=== PATIENT | female | born 1970 | race Caucasian/White ===

== ENCOUNTER 2017-10-02 14:29 | Inpatient (IN) | payer OTHER ==
[~2017-10-02] VITALS: Ht 190.5 cm; Wt 123.4 kg
--- NOTE | ~2017-10-02 | O ---
[facility] [place] [address] OPERATIVE REPORT Name: NAIMA SANDY Room #: 206-P [facility] IN M.R.#: [id number] Admission: 10/02/17 Attend Phys: Krishna Mcmahan MD Discharge: 10/07/17 Date of : 72 Report #: [id number] THIS REPORT FOR: //name// CC: Krishna Mcmahan NO PCP DATE OF SERVICE: 10/04/2017 PREOPERATIVE DIAGNOSES: 1. Left dorsal hand wounds. 2. Left hip subcutaneous abscess with ulceration x 2. 3. Right hip subcutaneous abscess with ulceration x 2. POSTOPERATIVE DIAGNOSES: 1. Left dorsal hand wounds. 2. Left hip subcutaneous abscess with ulceration x 2. 3. Right hip subcutaneous abscess with ulceration x 2. PROCEDURE: 1. I and D left dorsal hand abscess with placement of wound VAC on a wound, size 4 x 4 cm. 2. I and D left hip subcutaneous abscess with ulceration x 2. 3. I and D right hip subcutaneous abscess with ulceration x 2. SURGEON: Amrik Lopez MD FIELD SERVICE REP: Niesha Cooper PA-C ANESTHESIA: LMA. ESTIMATED BLOOD LOSS: 25 mL. COMPLICATIONS: None. SPECIMENS: None. CONDITION UPON LEAVING THE OPERATING ROOM: Stable. INDICATIONS FOR PROCEDURE: The patient is a 46-year-old female who has had multiple skin abscesses on the dorsum of her left hand as well as bilateral hips and cellulitis and Wound Care felt that it would be best to surgically debride it. In addition, she has had 2 subcutaneous abscesses with ulceration on right and left hip that have been open and draining. We elected to proceed with [facility] [address] [place] [address] OPERATIVE REPORT Name: NAIMA SANDY Room #: 206-P [facility] IN M.R.#: [id number] Admission: 10/02/17 Attend Phys: Krishna Mcmahan MD Discharge: 10/07/17 Date of : 72 Report #: [id number] debridement of these while in the operating room at the same time. DESCRIPTION OF PROCEDURE: Risks, benefits, alternatives, complications were discussed in detail with the patient including but not limited to risk of anesthesia, risk of damage to nerves, arteries, blood vessels; risk for continued infection, bleeding, and need for reoperation. Informed consent was obtained from the patient. The left hand and bilateral hips were appropriately marked in the preoperative holding area. She was already on IV vancomycin for preoperative antibiotics. She was brought to the operating room and placed in the supine position on the operating room table and LMA anesthesia was induced without complication. The left hand and upper extremity were prepped and draped in normal sterile fashion. Bilateral hips were prepped and draped in normal sterile fashion. Timeout was performed properly identifying the patient and procedure as well as the instrumentation. All in the operating room were in agreement. The left hand was debrided first and edges of wound were debrided sharply with a 10 blade with some expression of additional pus. The wound was digitally explored dorsally and medially. Adhesions were broken up and this was thoroughly irrigated with pulse lavage. Necrotic tissue was debrided with a wound vac was applied 4 x 4 cm. Attention was then turned to bilateral hips. The wounds extended into the adipose layer, but not deeper than that. Adhesions and loculations were broken up and these were thoroughly irrigated using a pulse lavage. Wounds were then dressed with a wet to dry dressing using normal saline. Medipore tape was applied. After this, she was awoken from anesthesia and taken to the recovery room under the care of Anesthesia postoperatively. <ELECTRONICALLY SIGNED> By: Amrik Lopez MD 10/08/17 1448 [id number] 1737 Amrik Lopez MD /nt
--- NOTE | ~2017-10-02 | HC ---
[facility] [place] [address] CONSULTATION Name: NAIMA SANDY Room #: 206-P [facility] IN M.R.#: [id number] Admission: 10/02/17 Attend Phys: Krishna Mcmahan MD Discharge: 10/07/17 Date of : 72 Report #: [id number] THIS REPORT FOR: //name// CC: Krishna Mcmahan NO PCP DATE OF SERVICE: 10/04/2017 REASON FOR CONSULTATION: Left hand and bilateral hip abscesses. HISTORY OF PRESENT ILLNESS: The patient is a 46-year-old female has been admitted to the hospital secondary to an abscess on her left hand as well as her bilateral hips. It has been there for a few weeks and has presumptive MRSA. She has had increasing pain and cellulitis in her left hand. Wound care has been consulted as well as Infectious Disease and the feeling is that she needs surgical debridement for these. PAST MEDICAL AND SURGICAL HISTORY: Gastric bypass, cholecystectomy, pancreatitis, COPD, hysterectomy. CURRENT MEDICATIONS: Have been reviewed and are on the chart. ALLERGIES: No known drug allergies. SOCIAL HISTORY: She drinks a pint of alcohol a day. Smokes 2 packs of cigarettes a day. Denies illicit drug use, although according to the chart there is some history of possible marijuana use. She is and her has a history of MRSA abscesses. PHYSICAL EXAMINATION: GENERAL: This is a well-developed, well-nourished female. She is in a moderate amount of pain. She is, however, cooperative with exam. EXTREMITIES: Examination of the left hand shows to have a draining ulceration in the dorsum of the left hand in the area of the first web space. There is some purulent drainage from this. This is opened with granulation tissue and surrounding cellulitis. She has poor parts department supervisor strength, but does have good sensation and brisk capillary refill. Examination of bilateral hip shows her to have two draining ulcerations, one in her almost directly lateral to her greater trochanter as well as one more in the belt line. These are draining with minimal cellulitis. LABORATORY DATA: Lab values showed to have a white count of 5.6. ASSESSMENT: Left hand abscess and bilateral hip abscesses. PLAN: She is having significant pain and debility from her left hand abscess [facility] [address] [place] [address] CONSULTATION Name: NAIMA SANDY Room #: 206-P [facility] IN M.R.#: [id number] Admission: 10/02/17 Attend Phys: Krishna Mcmahan MD Discharge: 10/07/17 Date of : 72 Report #: [id number] and so we will plan to take her to the operating room for surgical debridement of this and possible placement of a wound VAC. I do want to talk with Wound Care regarding their feeling about debridement of the hip abscesses or not. There is mild drainage from both of these and seemed to be decompressed, although we may consider surgical debridement of these since we are already in surgery for her left hand. We will plan to do her surgery later this morning. Thank you for allowing us to participate in the care of this patient. <ELECTRONICALLY SIGNED> By: Amrik Lopez MD 10/08/17 1448 0852 1848 Amrik Lopez MD /nt
--- NOTE | ~2017-10-02 | HC ---
[facility] [place] [address] CONSULTATION Name: NAIMA SANDY Room #: 206-P [facility] IN M.R.#: [id number] Admission: 10/02/17 Attend Phys: Krishna Mcmahan MD Discharge: Date of : 72 Report #: [id number] THIS REPORT FOR: //name// CC: Krishna Mcmahan NO PCP DATE OF SERVICE: 10/03/2017 GENERAL SURGERY CONSULT REFERRING PROVIDER: Dominick Garcia MD REASON FOR CONSULT: Multiple abscesses with necrosis. HISTORY OF PRESENT ILLNESS: The patient is a 46-year-old female with a history of alcoholism, although she denies any history of tobacco or illicit drug use, who presented with a 3-4 day history of left hand cellulitis and a large abscess. The patient's abscess on her hand has since opened and is draining, although her hand remains markedly erythematous and swollen with decreased range of motion. In addition, the patient has presence of numerous abscesses to both hips and outer thighs as well and culture results have returned positive for Staph aureus with presumptive MRSA. The patient's wounds will likely need further drainage and/or debridement and I have been asked to evaluate. She does have a past history of alcohol withdrawal while hospitalized. She also does admit to smoking 2 packs of tobacco daily when further questioned. PAST MEDICAL HISTORY: Prior gastric bypass and cholecystectomy as well as pancreatitis, COPD and hysterectomy. HOME MEDICATIONS: No home medications. ALLERGIES: No known drug allergies. FAMILY HISTORY: Reviewed and noncontributory. SOCIAL HISTORY: The patient drinks a pint of alcohol daily, smokes 2 packs of cigarettes daily. Denies any illicit drug use; however. She is and her has MRSA abscesses as well. REVIEW OF SYSTEMS: GENERAL: The patient denies nocturnal fevers or chills. HEENT: No change in vision, change in hearing. NECK: No swelling or difficulty swallowing. HEART: No chest pain or palpitations. LUNGS: No cough or shortness of breath. [facility] [address] [place] [address] CONSULTATION Name: NAIMA SANDY Room #: 206-P [facility] IN M.R.#: [id number] Admission: 10/02/17 Attend Phys: Krishna Mcmahan MD Discharge: Date of : 72 Report #: [id number] ABDOMEN: No nausea, no vomiting. GENITOURINARY: No dysuria or hematuria. ENDOCRINE: No polyuria or polydipsia. HEMATOLOGIC: No history of bleeding or easy bruising. EXTREMITIES: No history of weakness or limited range of motion. NEUROLOGIC: No history of syncope or near syncopal episodes. SKIN AND INTEGUMENT: Significant history of multiple abscesses to her left hand and bilateral hips and thighs. PSYCHIATRIC: No history of anxiety or depression. PHYSICAL EXAMINATION: VITAL SIGNS: Temperature 98.5, pulse 84, respirations 16, blood pressure 144/94. She is 6 feet 3 inches tall and weighs 256 pounds. GENERAL: Alert and oriented, in no acute distress. HEENT: Normocephalic, atraumatic. Pupils equal, round, reactive to light. NECK: Supple, without lymphadenopathy. Trachea midline. HEART: Regular rate and rhythm. LUNGS: Clear to auscultation bilaterally. ABDOMEN: Soft, nontender, nondistended. GENITOURINARY: Normal external female genitalia. EXTREMITIES: No clubbing, cyanosis or edema. NEUROLOGIC: Cranial nerves 2-12 are grossly intact. PSYCHIATRIC: Normal mood and affect. SKIN AND INTEGUMENT: Bilateral hips show 3 cm ulcers with mild purulent discharge, although they are draining and only have scant cellulitis. Dorsum of the left hand shows a 6 cm area of marked erythema, induration and fluctuance with an open wound and purulent drainage. She has limited range of motion to the left hand with poor hand patient services coordinator strength. LABORATORY AND X-RAY DATA: CBC shows white blood cell count of 5.6 thousand, hemoglobin 11.7, platelets 378,000. Creatinine 0.5. Albumin was 2.0 yesterday on admission. Alcohol was 80 on admission yesterday. Hand x-ray shows soft tissue swelling with soft tissue gas. Lactic acid was 2.1, which has since come down to 1.6. Lipase was normal at 69. Cultures show Staph aureus, presumptive MRSA. ASSESSMENT AND PLAN: A 46-year-old female with multiple abscesses that are likely methicillin-resistant Staphylococcus aureus in origin to the bilateral hips and left hand. The bilateral hips are open and draining with minimal cellulitis and while they may necessitate further drainage and/or debridement, the more concerning is the left hand as she has poor patient services coordinator strength and limited range of motion with gas in her tissues. As I do not do hand surgery, I will consult Dr. Link for the Orthopedic Surgery Service to evaluate further. She is on antibiotics per the direction of Infectious Disease, which I recommend continuation of at this time. [facility] [address] [place] [address] CONSULTATION Name: NAIMA SANDY Room #: 206-P ADM IN M.R.#: [id number] Admission: 10/02/17 Attend Phys: Krishna Mcmahan MD Discharge: Date of : 72 Report #: [id number] I sincerely appreciate this consult. I will follow closely and leave any further recommendations in the patient's chart as appropriate. <ELECTRONICALLY SIGNED> By: Asael Hines MD, FACS 10/04/17 1041 [id number] [id number] Asael Hines MD, FACS /nt
--- NOTE | ~2017-10-02 | HC ---
[facility] [place] [address] CONSULTATION Name: NAIMA SANDY Room #: 206-P [facility] IN M.R.#: [id number] Admission: 10/02/17 Attend Phys: Krishna Mcmahan MD Discharge: Date of : 72 Report #: [id number] THIS REPORT FOR: //name// CC: Krishna Mcmahan NO PCP DATE OF SERVICE: 10/03/2017 CHIEF COMPLAINT: Multiple cutaneous abscesses. HISTORY OF PRESENT ILLNESS: This is a 46-year-old white female with a history of alcoholism who presented to the Emergency Department with painful draining wounds to both hips and her left hand. She denies any previous episodes of skin infections, although her significant other who is with her notes, she has had multiple skin abscesses with MRSA. The patient denies any injury or any picking at her skin or other self-induced behaviors that would have resulted in these. She does drink approximately a pint of vodka per day. She complains of severe pain at this time. PAST MEDICAL HISTORY: Positive for history of alcoholism. She denies any history of diabetes, hypertension, coronary artery disease. She does have some history of pancreatitis and it is also mentioned that she has COPD, although she has never been a smoker. SOCIAL HISTORY: Positive for alcohol use. She denies drug use or tobacco use. FAMILY HISTORY: Noncontributory. REVIEW OF SYSTEMS: CONSTITUTIONAL: The patient denies fever, chills or weight loss. NEUROLOGICAL: The patient denies focal weakness, numbness or tingling. EYES: The patient denies visual changes, redness or drainage. ENT: The patient denies earache, nasal drainage, sore throat. CARDIOVASCULAR: The patient denies chest pain or palpitations or diaphoresis. PULMONARY: The patient denies cough or shortness of breath. GASTROINTESTINAL: The patient does complain of some nausea and decreased appetite. ORTHOPEDIC: The patient does complain of pain in both hips and left hand. Other systems in a 14-point review of systems are negative. ALLERGIES: No known drug allergies. MEDICATIONS: Currently include Haldol, lorazepam, mag ox, morphine, Zofran, thiamine and vancomycin. PHYSICAL EXAMINATION: [facility] [address] [place] [address] CONSULTATION Name: NAIMA SANDY Room #: 206-P [facility] IN M.R.#: [id number] Admission: 10/02/17 Attend Phys: Krishna Mcmahan MD Discharge: Date of : 72 Report #: [id number] VITAL SIGNS: At this time include pulse 84, respirations 16, blood pressure 144/94, temperature 98.5. GENERAL: This is a chronically ill-appearing female patient, appears to be in no obvious distress. HEENT: Normocephalic. Nose and throat are clear. NECK: Supple. LUNGS: Clear. HEART: Regular. ABDOMEN: Soft. Bowel sounds present. EXTREMITIES: Examination of the pelvic region demonstrates that there are two draining ulcerations on each hip, both left and right. These appear to be abscesses. There is some necrotic tissue, the left side seems to tunnel a bit more. They are quite symmetrical, foul smelling with yellow purulent drainage, very tender to palpation. There is also an ulceration on the dorsal aspect of the patient's left hand with significant soft tissue swelling of the hand, induration and erythema. NEUROLOGIC: The patient is alert and oriented and appropriate. Moving all 4 extremities spontaneously. LABORATORY DATA: Includes sodium 141, potassium 3.3, chloride 106, CO2 of 29, BUN 12, creatinine 0.5, glucose 98, calcium is 7.1, SGOT is 23, total bilirubin 0.2, calcium 7.0, alkaline phosphatase is moderately elevated at 155, SGPT 24, total protein 5.0, albumin is low at 2.0. White blood cell count 5.6, hemoglobin 11.7, hematocrit 35.6, platelet count 378,000. CLINICAL IMPRESSION: 1. Multiple cutaneous abscesses including both hips and left hand due to methicillin-resistant Staphylococcus aureus. 2. History of alcoholism. 3. Moderate protein-calorie malnutrition. RECOMMENDATIONS: At this point in time, we will recommend local care with bordered foam for the time being. These areas will need surgical debridement. We have consulted the general surgeon, Dr. Hines. I have spoken with him about this. Due to the significant tenderness, I think she will require extensive debridement in an operating room setting. She is currently on intravenous vancomycin. We are awaiting sensitivities on the cultures. She will need aggressive nutritional support to support wound healing. Alcohol cessation will need to be discussed as well. I appreciate being asked to see her in consultation. <ELECTRONICALLY SIGNED> By: Dominick Garcia MD 10/04/17 1135 1719 1306 Dominick Garcia MD /nt
[2017-10-02 14:40] VITALS: BP 128/73
[2017-10-02 16:30] LABS: ABSOLUTE NEUTROPHILS 5.5 thou/uL (1.4-8.2); BASOPHILS 0.5 % (0.0-2.0); EOSINOPHILS 1.2 % (0.0-3.0); HEMATOCRIT 38.8 % (37.0-47.0); HEMOGLOBIN 12.9 gm/dL (12.0-15.0); LYMPHOCYTES 17.2 % (24.0-44.0); MCH 28.4 pg (26.0-34.0); MCHC 33.3 g/dL (28.0-37.0); MCV 85.4 fL (80.0-100.0); MONOCYTES 4.3 % (1.0-8.0); PLATELET COUNT 394 thou/uL (150-400); POLYS 76.8 % (36.0-66.0); RBC 4.54 mil/uL (4.20-5.00); RDW 15.5 % (10.5-14.5); WBC 7.2 thou/uL (4.0-11.0)
[2017-10-02 16:39] LABS: CALCIUM 7.8 mg/dL (8.5-10.1); CREATININE 0.6 mg/dL (0.6-1.0); POTASSIUM 3.2 mmol/L (3.5-5.1)
[2017-10-02 16:44] LABS: TOTAL BILIRUBIN 0.2 mg/dL (<0.1-1.0); TOTAL PROTEIN 5.8 g/dL (6.4-8.2)
[2017-10-02 18:01] VITALS: BP 128/73
[2017-10-02 18:40] LABS: FOLIC ACID 10.7 ng/mL (8.6-58.9)
[2017-10-02 20:25] VITALS: BP 126/86
[2017-10-02 20:34] VITALS: BP 138/75
[2017-10-02 20:45] VITALS: BP 138/75
[2017-10-03 00:11] VITALS: BP 144/89
[2017-10-03 04:48] VITALS: BP 122/74
[2017-10-03 05:01] LABS: HEMATOCRIT 35.6 % (37.0-47.0); HEMOGLOBIN 11.7 gm/dL (12.0-15.0); MCH 28.3 pg (26.0-34.0); MCHC 32.8 g/dL (28.0-37.0); MCV 86.3 fL (80.0-100.0); RBC 4.12 mil/uL (4.20-5.00); RDW 15.9 % (10.5-14.5); WBC 5.6 thou/uL (4.0-11.0)
[2017-10-03 05:04] LABS: CALCIUM 7.1 mg/dL (8.5-10.1); CREATININE 0.5 mg/dL (0.6-1.0); POTASSIUM 3.3 mmol/L (3.5-5.1)
[2017-10-03 07:31] VITALS: BP 133/93
[2017-10-03 11:15] VITALS: BP 144/94
[2017-10-03 19:50] VITALS: BP 144/80
[2017-10-04 02:32] LABS: CALCIUM 7.3 mg/dL (8.5-10.1); CREATININE 0.6 mg/dL (0.6-1.0); MAGNESIUM 1.8 mg/dL (1.8-2.4); PHOSPHORUS 2.5 mg/dL (2.5-4.9); POTASSIUM 3.5 mmol/L (3.5-5.1)
[2017-10-04 04:50] VITALS: BP 140/73
[2017-10-04 07:10] VITALS: BP 124/76
[2017-10-04 13:59] VITALS: BP 151/100
[2017-10-04 14:12] LABS: AMP/METHAMP Negative (Negative); BARBITURATES Negative (Negative); BENZODIAZEPINES POSITIVE (Negative); COCAINE POSITIVE (Negative); METHADONE Negative (Negative); OPIATES POSITIVE (Negative); PCP Negative (Negative)
[2017-10-04 15:13] VITALS: BP 161/107
[2017-10-04 20:00] VITALS: BP 161/75
[2017-10-05 00:38] VITALS: BP 167/86
[2017-10-05 03:47] VITALS: BP 134/85
[2017-10-05 04:16] LABS: HEMATOCRIT 32.5 % (37.0-47.0); HEMOGLOBIN 10.9 gm/dL (12.0-15.0); MCH 28.8 pg (26.0-34.0); MCHC 33.7 g/dL (28.0-37.0); MCV 85.4 fL (80.0-100.0); RBC 3.8 mil/uL (4.20-5.00); RDW 15.4 % (10.5-14.5); WBC 6.5 thou/uL (4.0-11.0)
[2017-10-05 04:34] LABS: ALBUMIN 1.5 g/dL (3.4-5.0); CALCIUM 7.1 mg/dL (8.5-10.1); CREATININE 0.6 mg/dL (0.6-1.0); POTASSIUM 3.3 mmol/L (3.5-5.1); TOTAL BILIRUBIN 0.1 mg/dL (<0.1-1.0); TOTAL PROTEIN 4.7 g/dL (6.4-8.2)
[2017-10-05 07:40] VITALS: BP 185/113
[2017-10-05 11:45] VITALS: BP 143/44
[2017-10-05 15:50] VITALS: BP 146/99
[2017-10-06 04:19] VITALS: BP 153/101
[2017-10-06 08:14] VITALS: BP 170/107
[2017-10-06 19:30] VITALS: BP 144/96
[2017-10-07 04:21] VITALS: BP 152/106
[2017-10-07 04:30] VITALS: BP 156/97
[2017-10-07 08:16] VITALS: BP 151/111
[2017-10-07] MEDS ORDERED: BACTRIM DS TAB1 EACH PO (12:09)
[2017-10-07] MEDS ORDERED: NICOTINE TRANSD14 M1 TRANSDERM (12:09)
[2017-10-07] MEDS ORDERED: HYDROCODONE-AP1 EAC6 PO (12:09)
[2017-10-07] MEDS ORDERED: LOPRESSOR50 PO (12:09)
[2017-10-07 15:54] VITALS: BP 151/111
== END 2017-10-07 17:00 | disposition home or self-care (01) | DRG 580 ==
LOC: ER 14:29 → 2N 16:51 → EROBS 16:51 → 2N 20:10 → ENTRNSPT 10-07 16:38 → 2N 10-07 17:00
PROVIDERS: Hospitalist; Physician Assistant
PROC: 05HB33Z Insertion of Infusion Device into Right Basilic Vein, Percutaneous Approach (ICD-10-PCS; principal; 2017-10-02)
PROC: 0J9M0ZZ Drainage of Left Upper Leg Subcutaneous Tissue and Fascia, Open Approach (ICD-10-PCS; 2017-10-04)
PROC: 0J9K0ZZ Drainage of Left Hand Subcutaneous Tissue and Fascia, Open Approach (ICD-10-PCS; 2017-10-04)
PROC: 0J9L0ZZ Drainage of Right Upper Leg Subcutaneous Tissue and Fascia, Open Approach (ICD-10-PCS; 2017-10-04)
DX: L02.416 Cutaneous abscess of left lower limb (principal); L03.90 Cellulitis, unspecified; L97.829 Non-pressure chronic ulcer of other part of left lower leg with unspecified severity; E44.0 Moderate protein-calorie malnutrition; L02.415 Cutaneous abscess of right lower limb; F17.210 Nicotine dependence, cigarettes, uncomplicated; E87.6 Hypokalemia; F10.20 Alcohol dependence, uncomplicated; L98.499 Non-pressure chronic ulcer of skin of other sites with unspecified severity; M54.9 Dorsalgia, unspecified; J44.9 Chronic obstructive pulmonary disease, unspecified; G89.29 Other chronic pain; A49.02 Methicillin resistant Staphylococcus aureus infection, unspecified site; Z68.34 Body mass index [BMI] 34.0-34.9, adult; Z79.899 Other long term (current) drug therapy; Z90.49 Acquired absence of other specified parts of digestive tract; Z90.710 Acquired absence of both cervix and uterus; Z23 Encounter for immunization
CPT/HCPCS: 10194; 27000; 50010; 50101; 50386; 53078; 57091; 62110; 62900; 70005